=== PATIENT | male | born 1970 | race Caucasian/White ===

== ENCOUNTER 2017-07-23 19:25 | Emergency (ER) | payer BC ==
[2017-07-23 21:33] VITALS: BP 138/85
--- NOTE | 2017-07-24 07:51 | ED Physician Documentation ---
History of Present Illness - Stated complaint Stated Complaint: LT RING FINGER SWELLING - Chief complaint Chief Complaint: Ext Problem - History obtained from History obtained from: Patient - History of Present Illness Timing: Today Improved by: no ameliorating factors Worsened by: no exacerbating factors - Additonal information Additional information: since earlier today, patient has had gradual onset and gradually progressive left 4th digit (finger) swelling distal to his wedding band; this has progressed to the point that he cannot remove the ring Review of Systems Musculoskeletal: reports: Extremity pain, Extremity swelling Neurologic: denies: Focal weakness, Numbness PD PAST MEDICAL HISTORY - Past Medical History Past Medical History: No - Present Medications Home Medications: Ambulatory Orders Medication Instructions Recorded Confirmed buPROPion [Wellbutrin Xl] 150 mg PO DAILY 07/23/17 07/23/17 - Allergies Allergies/Adverse Reactions: Allergies Allergy/AdvReac Type Severity Reaction Status Date / Time Sulfa (Sulfonamide Allergy Hives Verified 07/23/17 19:31 Antibiotics) - Living Situation Living Situation: reports: With spouse/s.o. Living Arrangement: reports: At home PD ED PE NORMAL - Vitals Vital signs reviewed: Yes - General General: Alert and oriented X 3, No acute distress, Well developed/nourished PD ED PE EXPANDED - Extremities Extremities: Swelling, Left finger(s) (left fourth finger is circumferentially edematous immediately distal to his wedding band. brisk capillary refill, LTS intact, no erythema) Results - Vitals Vitals: Vital Signs - 24 hr 07/23/17 07/23/17 19:29 21:32 Temperature 36.3 C L 36.2 C L Heart Rate 79 65 Respiratory 16 18 Rate Blood Pressure 147/89 H 138/85 H O2 Saturation 97 98 Oxygen O2 Source Room air PD MEDICAL DECISION MAKING - ED course Complexity details: considered differential, d/w patient ED course: I used the ring cutter to start cutting his ring with slow progress; the nurse and tech subsequently continued to work on the ring and were able to cut the ring off using the ring cutter. I then reexamined the digit; he has FROM with moderate residual swelling. Departure - Departure Disposition: 01 Home, Self Care Clinical Impression: Tight ring on finger Condition: Good Comments: patient given written instructions ([employer] DOWNTIME) Discharge Date/Time: 07/23/17 22:02
== END 2017-07-23 22:02 | disposition home or self-care (01) ==
LOC: ED 19:25
DX: S60.455A Superficial foreign body of left ring finger, initial encounter (principal); X58.XXXA Exposure to other specified factors, initial encounter
CPT/HCPCS: 99281; 99283

== ENCOUNTER 2018-07-28 14:40 | Outpatient (CLI) | payer OTHER, BC ==
--- NOTE | 2018-07-28 15:58 | XRAY Report ---
Reason: KNEE JOINT PAIN, > THAN 3 MONTHS,LEFT Procedure Date: 07/28/2018 Accession Number: [id number] / [id number] Procedure: XR - Knee 4 View LT CPT Code: FULL RESULT: EXAM: LEFT KNEE RADIOGRAPHY EXAM DATE: 07/28/2018 03:45 PM. CLINICAL HISTORY: Knee joint pain, greater than 3 months, left. COMPARISON: None. TECHNIQUE: 3 views. FINDINGS: Bones: No fracture is identified. Along the medial distal femoral metadiaphysis is an exostosis, benign appearance without aggressive features. Joints: Normal. No effusion. No subluxations. Soft Tissues: Normal. No soft tissue swelling. IMPRESSION: No fracture or dislocation. Incidentally, note is made of an exostosis. [facility]
== END 2018-07-28 14:41 | disposition home or self-care (01) ==
LOC: DI 14:40
PROVIDERS: ATTEND Nurse Practitioner Primary Care
DX: M25.562 Pain in left knee (principal)

== ENCOUNTER 2018-11-05 08:00 | Outpatient (CLI) | payer BC, OTHER ==
[2018-11-05 11:40] LABS: BASOPHILS % (AUTO) 0.8 %; EOSINOPHILS # (AUTO) 0.3 10^3/uL (0.0-0.7); EOSINOPHILS % (AUTO) 4.5 %; HGB - HEMOGLOBIN 15.8 g/dL (14.0-18.0); LYMPHOCYTES # (AUTO) 1.8 10^3/uL (1.5-3.5); LYMPHOCYTES % (AUTO) 30.6 %; MEAN CORPUSCULAR HGB CONC 34.7 g/dL (32.0-36.0); MEAN CORPUSCULAR VOLUME 92.3 fL (80.0-94.0); MONOCYTES # (AUTO) 0.6 10^3/uL (0.0-1.0); MONOCYTES % (AUTO) 9.6 %; NEUTROPHILS # (AUTO) 3.1 10^3/uL (1.5-6.6); NEUTROPHILS % (AUTO) 54.5 %; PLT - PLATELET COUNT 306 10^3/uL (130-450); RED BLOOD COUNT 4.93 10^6/uL (4.70-6.10); RED CELL DISTRIBUTION WIDTH 13.4 % (12.0-15.0); WHITE BLOOD COUNT 5.8 x10^3/uL (4.8-10.8)
[2018-11-05 12:06] LABS: ALBUMIN 4.1 g/dL (3.2-5.5); ALBUMIN/GLOBULIN RATIO 1.4 (1.0-2.2); ALKALINE PHOSPHATASE 48 IU/L (42-121); ALT ALANINE AMINOTRANSFERASE 27 IU/L (10-60); AST ASPARTATE AMINOTRANSFERASE 19 IU/L (10-42); BILIRUBIN,TOTAL 0.9 mg/dL (0.2-1.0); BUN - BLOOD UREA NITROGEN 22 mg/dL (6-20); CALCIUM 8.8 mg/dL (8.5-10.3); CARBON DIOXIDE - CO2 26 mmol/L (21-32); CHLORIDE 104 mmol/L (101-111); CHOL/HDL RATIO 3.8 (<5.0); CHOLESTEROL 192 mg/dL; CREATININE 0.7 mg/dL (0.6-1.2); GFR - MDRD 121 (>89); GLUCOSE 94 mg/dL (70-100); HDL CHOLESTEROL 51 mg/dL; LDL CHOLESTEROL,CALCULATED 122 mg/dL; LDL/HDL RATIO 2.4 (<3.6); SODIUM 138 mmol/L (135-145); VLDL CHOLESTEROL 19 mg/dL
[2018-11-05 12:15] LABS: HB2 TOTAL 17.4 g/dL; HEMOGLOBIN A1C 0.61 g/dL; HEMOGLOBIN A1C % 5.4 % (4.6-6.2)
== END 2018-11-05 23:59 | disposition home or self-care (01) ==
LOC: LAB.R 08:00
PROVIDERS: ATTEND Nurse Practitioner Primary Care
DX: Z00.00 Encounter for general adult medical examination without abnormal findings (principal); Z13.1 Encounter for screening for diabetes mellitus; N52.9 Male erectile dysfunction, unspecified; Z13.6 Encounter for screening for cardiovascular disorders
CPT/HCPCS: 80053; 80061; 83036; 83721; 84443; 85025

== ENCOUNTER 2021-11-13 07:00 | Outpatient (CLI) | payer BC | END 2021-11-13 23:59 | disposition home or self-care (01) | LOC: LAB.N 07:00 | PROVIDERS: ATTEND Physician Assistant Medical | DX: U07.1 COVID-19 (principal) ==